=== PATIENT | female | born 1980 | race Caucasian/White ===

== ENCOUNTER 2016-09-07 15:13 | Emergency (ER) | payer OTHER ==
[2016-09-07] MEDS ORDERED: NS 0.9% 1000 ML* 2,000 ML IV ONE (16:27)
[2016-09-07] MEDS ORDERED: Ondansetron INJ* 2 MG/ML VIAL IV ONE (16:27)
[2016-09-07 16:37] LABS: Hematocrit 35 % (35-47); Hemoglobin 12.1 g/dl (12.0-16.0); Mean Corpuscular HGB Conc 35 g/dl (31-36); Mean Corpuscular Hemoglobin 31 pg (27-31); Mean Corpuscular Volume 88 fL (80-97); Mean Platelet Volume 8 um3 (7.4-10.4); Red Blood Count 3.93 10^6/ul (4.0-5.4); Red Cell Distribution Width 13 % (10.5-15); White Blood Count 9.5 10^3/ul (3.5-10.8)
[2016-09-07 16:46] LABS: Albumin 3.3 g/dL (3.2-5.2); Calcium 8.6 mg/dL (8.6-10.3); EGFR African American 155.2 (>60); EGFR Non-African American 120.7 (>60); Globulin 3.1 g/dL (2-4); Potassium 3.5 mmol/L (3.5-5.0); Total Bilirubin 0.6 mg/dL (0.2-1.0); Total Protein 6.4 g/dL (6.4-8.9)
[2016-09-07 18:56] VITALS: BP 127/59
[2016-09-07 19:02] LABS: Urine Bilirubin Negative (Negative); Urine Glucose Negative (Negative); Urine Nitrite Negative (Negative)
--- NOTE | 2016-09-12 12:12 | ED ---
Chris Summers Billy, scribed for Dwayne Dickerson MD on 09/07/16 at 1637 . GI/ HPI - HPI Summary HPI Summary: Patient is a 36 year-old female coming to [facility] for evaluation of N/V/D for the last 2 days. Patient is 30 weeks . A0, LMP 02/13/17, due date . Denies any abdominal pain or vaginal discharge/bleeding. Patient was seen by Dr. Arango ([facility] in [place]) who recommended that the patient come to the ED for further treatment and evaluation. - History of Current Complaint Chief Complaint: EDNauseaVomitDiarrh Time Seen by Provider: 09/07/16 16:19 Stated Complaint: POSS DEHYDRATION-SENT BY OB Hx Obtained From: Patient Onset/Duration: Started Days Ago Timing: Intermittent Severity: Moderate Current Severity: Moderate Pain Intensity: 0 Associated Signs and Symptoms: Positive: Nausea, Vomiting, Diarrhea Aggravating Factor(s): Nothing Alleviating Factor(s): Nothing - Allergy/Home Medications Allergies/Adverse Reactions: Allergies Allergy/AdvReac Type Severity Reaction Status Date / Time Amoxicillin Allergy Hives Verified 09/07/16 16:17 Bee Venom Allergy Hives/Diff. Verified 09/07/16 16:17 Breathing/I tching PMH/Surg Hx/FS Hx/Imm Hx Endocrine/Hematology History: Denies: Hx Diabetes Cardiovascular History: Denies: Hx Myocardial Infarction Infectious Disease History: Yes Infectious Disease History: Denies: Traveled Outside the [place] in Last 30 Days - Family History Known Family History: Positive: Hypertension, Other - Diverticulitis - Social History Alcohol Use: None Substance Use Type: Reports: None Smoking Status (MU): Never Smoked Tobacco Review of Systems Negative: Fever Positive: Vomiting, Diarrhea, Nausea. Negative: Abdominal Pain All Other Systems Reviewed And Are Negative: Yes Physical Exam - Summary Physical Exam Summary: VITAL SIGNS: Reviewed. GENERAL: Patient is an obese female who is lying comfortable in the stretcher. Patient is not in any acute respiratory distress. HEAD AND FACE: Normocephalic and atraumatic. EYES: PERRLA, EOMI x 2, No injected conjunctiva. EARS: Hearing grossly intact. Ear canals and tympanic membranes are WNL. MOUTH: Oropharynx within normal limits. NECK: Supple, trachea is midline, no adenopathy, no JVD. CHEST: Symmetric, no tenderness at palpation LUNGS: Clear to auscultation bilaterally. No wheezing or crackles. CVS: RRR,, S1 and S2 present, no murmurs or gallops appreciated. ABDOMEN: Soft, obese female, non-tender. Positive bowel sounds. No rebound no guarding, and no masses palpated. No abdominal bruit or pulsations. EXTREMITIES: FROM in all major joints, no edema, no cyanosis or clubbing. NEURO: Alert and oriented x 3. No acute neurological deficits. Speech is normal. SKIN: Dry and warm Triage Information Reviewed: Yes Vital Signs On Initial Exam: Initial Vitals Temp Pulse Resp BP Pulse Ox 97.1 F 76 16 139/68 98 09/07/16 15:38 09/07/16 15:38 09/07/16 15:38 09/07/16 15:38 09/07/16 15:38 Vital Signs Reviewed: Yes - Kady Coma Scale Coma Scale Total: 15 Diagnostics - Vital Signs Vital Signs Temp Pulse Resp BP Pulse Ox 09/07/16 16:19 83 138/88 97 09/07/16 16:16 83 98 09/07/16 16:12 97.5 F 87 18 139/68 97 09/07/16 15:38 97.1 F 76 16 139/68 98 - Laboratory Lab Results: Lab Results 09/07/16 09/07/16 09/07/16 Range/Units 16:15 16:15 16:15 WBC 9.5 (3.5-10.8) 10^3/ul RBC 3.93 L (4.0-5.4) 10^6/ul Hgb 12.1 (12.0-16.0) g/dl Hct 35 (35-47) % MCV 88 (80-97) fL MCH 31 (27-31) pg MCHC 35 (31-36) g/dl RDW 13 (10.5-15) % Plt Count 158 (150-450) 10^3/ul MPV 8 (7.4-10.4) um3 Neut % (Auto) 79.0 (38-83) % Lymph % (Auto) 13.9 L (25-47) % [place] % (Auto) 6.3 (1-9) % Eos % (Auto) 0.3 (0-6) % Baso % (Auto) 0.5 (0-2) % Absolute Neuts (auto) 7.5 (1.5-7.7) 10^3/ul Absolute Lymphs (auto) 1.3 (1.0-4.8) 10^3/ul Absolute Monos (auto) 0.6 (0-0.8) 10^3/ul Absolute Eos (auto) 0 (0-0.6) 10^3/ul Absolute Basos (auto) 0 (0-0.2) 10^3/ul Absolute Nucleated RBC 0.01 10^3/ul Nucleated RBC % 0.1 Sodium 135 (133-145) mmol/L Potassium 3.5 (3.5-5.0) mmol/L Chloride 106 (101-111) mmol/L Carbon Dioxide 20 L (22-32) mmol/L Anion Gap 9 (2-11) mmol/L BUN 8 (6-24) mg/dL Creatinine 0.57 (0.51-0.95) mg/dL Est GFR ( Amer) 155.2 (>60) Est GFR (Non-Af Amer) 120.7 (>60) BUN/Creatinine Ratio 14.0 (8-20) Glucose 80 (70-100) mg/dL Lactic Acid 0.5 (0.5-2.0) mmol/L Calcium 8.6 (8.6-10.3) mg/dL Total Bilirubin 0.60 (0.2-1.0) mg/dL AST 26 (13-39) U/L ALT 19 (7-52) U/L Alkaline Phosphatase 72 (34-104) U/L Total Protein 6.4 (6.4-8.9) g/dL Albumin 3.3 (3.2-5.2) g/dL Globulin 3.1 (2-4) g/dL Albumin/Globulin Ratio 1.1 (1-3) Result Diagrams: 09/07/16 16:15 09/07/16 16:15 Lab Statement: Any lab studies that have been ordered have been reviewed, and results considered in the medical decision making process. Re-Evaluation - Re-Evaluation First Eval Re-Evaluation Time: 18:45 Change: Improved GIGU Course/Dx - Course Assessment/Plan: Patient is a 36 year-old female coming to [facility] for evaluation of N/V/D for the last 2 days. Patient is 30 weeks . A0, LMP 02/13/17 , due date 11/13/16. Denies any abdominal pain or vaginal discharge/bleeding. Patient was seen by Dr. Arango ([facility] in [place]) who recommended that the patient come to the ED for further treatment and evaluation. Test results WNL. The patient was given IV fluids, Zofran for N/V, and her symptoms resolved. I did not do a pelvic exam or US since the patient has no abdominal cramping and denies any vaginal bleeding or discharge. heart rate is 136. The patient is tolerating PO without nausea or vomiting. Therefore, she will be discharged home to follow up with [facility]. She was recommended to return to the ED with any new vaginal bleeding or discharge, or abdominal cramping. She understands and agrees. - Diagnoses Differential Diagnoses - Female: Gastritis, Gastroenteritis (Viral), Gastroenteritis (Bacterial), Gerd Provider Diagnoses: Nausea vomiting and diarrhea Discharge - Discharge Plan Condition: Stable Disposition: HOME Patient Education Materials: Nausea and Vomiting in (ED), Acute Diarrhea (ED) Referrals: Khari MCCRACKEN,Froy Oconnor [Primary Care Provider] - Additional Instructions: FOLLOW UP WITH YOUR [facility]. The documentation as recorded by the Chris kim Billy accurately reflects the service I personally performed and the decisions made by me, Dwayne Dickerson MD.
== END 2016-09-07 18:56 | disposition home or self-care (01) ==
LOC: ED 15:13
DX: R11.2 Nausea with vomiting, unspecified (principal); R19.7 Diarrhea, unspecified
CPT/HCPCS: 36415; 80053; 81003; 83605; 85025; 96374; 99284; J2405

== ENCOUNTER 2016-09-12 07:03 | Emergency (ER) | payer BC, OTHER ==
[2016-09-12 07:30] VITALS: BP 127/58
--- NOTE | 2016-09-12 07:33 | UC ---
Throat Pain/Nasal Phong HPI - HPI Summary HPI Summary: 5 DAYS OF COUGH, ST AND EAR PAIN. NO FEVER, N/V/D. 31 WEEKS . - History of Current Complaint Chief Complaint: UCGeneralIllness Stated Complaint: SORE THROAT EAR PAIN Time Seen by Provider: 09/12/16 07:19 Hx Obtained From: Patient Onset/Duration: Gradual Onset, Lasting Days, Still Present Pain Intensity: 3 Pain Scale Used: 0-10 Numeric Cough: Nonproductive Associated Signs & Symptoms: Positive: Negative - Allergies/Home Medications Allergies/Adverse Reactions: Allergies Allergy/AdvReac Type Severity Reaction Status Date / Time Amoxicillin Allergy Hives Verified 09/12/16 07:16 Bee Venom Allergy Hives/Diff. Verified 09/12/16 07:16 Breathing/I tching Home Medications: Home Medications Vitamin [Calna] 1 tab BEDTIME 09/12/16 [History Confirmed 09/12/16] PMH/Surg Hx/FS Hx/Imm Hx Previously Healthy: Yes - Surgical History Surgical History: Yes Surgery Procedure, Year, and Place: Tonsils - Family History Known Family History: Positive: Hypertension - Social History Alcohol Use: None Substance Use Type: None Smoking Status (MU): Never Smoked Tobacco - Immunization History Most Recent Influenza Vaccination: 2016 Most Recent Tetanus Shot: UTD Review of Systems Constitutional: Negative ENT: Sore Throat, Ear Ache Respiratory: Cough Cardiovascular: Negative Gastrointestinal: Abdominal Pain All Other Systems Reviewed And Are Negative: Yes Physical Exam Triage Information Reviewed: Yes Appearance: Well-Appearing, No Pain Distress, Well-Nourished Vital Signs: Initial Vital Signs Temp 97.7 F 09/12/16 07:17 Pulse 82 09/12/16 07:17 Resp 16 09/12/16 07:17 BP 127/58 09/12/16 07:17 Pulse Ox 98 09/12/16 07:17 Vital Signs Reviewed: Yes Eyes: Positive: Conjunctiva Clear ENT: Positive: Hearing grossly normal, Pharynx normal, TMs normal, Other: - NO TONSILS Neck: Positive: Supple, Nontender, No Lymphadenopathy Respiratory Exam: Normal Cardiovascular Exam: Normal Abdomen Description: Positive: Soft Musculoskeletal: Positive: No Edema Neurological: Positive: Alert Psychological: Positive: Age Appropriate Behavior Skin: Negative: rashes Throat Pain/Nasal Course/Dx - Differential Dx/Diagnosis Provider Diagnoses: ACUTE URI Discharge - Discharge Plan Condition: Stable Disposition: HOME Patient Education Materials: Upper Respiratory Infection (ED) Referrals: Mendoza Alonzo DO [Primary Care Provider] - If Needed Additional Instructions: ACUTE UPPER RESPIRATORY INFECTION The common cold is a benign self-limited syndrome representing a group of diseases caused by members of several families of viruses. It is the most frequent acute illness in the [place] and throughout the industrialized world. The term "common cold" refers to a mild upper respiratory viral infection involving, to variable degrees, nasal congestion and discharge ( rhinorrhea), sneezing, sore throat, cough, low-grade fever, headache, and malaise. Symptomatic therapy remains the mainstay of common cold treatment. In the absence of convincing evidence of a secondary bacterial infection, antibiotics are not effective in the treatment of the common cold and should not be prescribed. Be advised that the usual course and duration of illness is up to one and a half weeks for patients with a cold, but can last slightly longer; symptoms usually persist longer in smokers AND [place] .
== END 2016-09-12 07:45 | disposition home or self-care (01) ==
LOC: UCCORT 07:03
DX: J06.9 Acute upper respiratory infection, unspecified (principal); Z88.1 Allergy status to other antibiotic agents; Z3A.31 31 weeks gestation of pregnancy
CPT/HCPCS: 99211; G0463

== ENCOUNTER 2016-11-19 19:03 | Inpatient (IN) | payer BC ==
[2016-11-19] MEDS ORDERED: CEFAZOLIN 2 GM IVPB ONE (20:50)
[2016-11-19] MEDS ORDERED: Dinoprostone* 10 MG VAG.SUPP VAGINAL ONE (21:00)
[2016-11-19] MEDS ORDERED: ceFAZolin 1 GM ADVAN(*) 1 GM in NS 0.9% 50 ML* 50 ML IVPB SCH (21:00)
[2016-11-20] MEDS ORDERED: Misoprostol TAB* 100 MCG ONE (09:03)
[2016-11-20] MEDS ORDERED: Misoprostol TAB* 100 MCG VAGINAL PRN (09:04)
[2016-11-20] MEDS: Docusate CAP* 100 MG PO PRN (10:38)
[2016-11-20 15:18] LABS: Hematocrit 40 % (35-47); Hemoglobin 13.6 g/dl (12.0-16.0); Mean Corpuscular HGB Conc 34 g/dl (31-36); Mean Corpuscular Hemoglobin 31 pg (27-31); Mean Corpuscular Volume 90 fL (80-97); Mean Platelet Volume 9 um3 (7.4-10.4); Red Blood Count 4.42 10^6/ul (4.0-5.4); Red Cell Distribution Width 13 % (10.5-15); White Blood Count 10.6 10^3/ul (3.5-10.8)
[2016-11-20] MEDS ORDERED: ceFOXitin 2 GM IVPREMIX* 2 GM/50 ML BAG ONE (18:01)
[2016-11-20] MEDS ORDERED: Sodium Citrate/Citric Acid* 15 ML UDC ONE (18:01)
[2016-11-20] MEDS ORDERED: ceFOXitin 2 GM IVPREMIX* 2 GM/50 ML BAG IVPB ONE (18:09)
[2016-11-20] MEDS ORDERED: Ondansetron INJ* 2 MG/ML VIAL ONE (18:44)
[2016-11-20] MEDS ORDERED: Morphine PF AMP (0.5MG/ML)* 5 MG/10 ML AMP ONE (18:44)
[2016-11-20] MEDS ORDERED: Dexamethasone IV* 4 MG/ML 1 ML (4 MG) ONE (18:44)
[2016-11-20] MEDS ORDERED: OXYTOCIN* 10 UNITS/ML 1 ML VIAL ONE (18:44)
[2016-11-20] MEDS ORDERED: oxyCODONE TAB* 5 MG TAB PO PRN ×2 (18:47→20:00)
[2016-11-20] MEDS ORDERED: Nalbuphine* 20 MG/ML 1 ML VIAL IV PRN ×2 (18:47→20:00)
[2016-11-20] MEDS ORDERED: Acetaminophen IV 1GM/100ML * 100 ML IVPB ONE (18:47)
[2016-11-20] MEDS ORDERED: fentaNYL* 50 MCG/ML 2 ML VIAL (100 MCG VIAL) IV PRN (18:47)
[2016-11-20] MEDS ORDERED: PROCHLORPERAZINE INJ 5 MG/ML 2 ML VIAL IV PRN ×2 (18:47→20:00)
[2016-11-20] MEDS ORDERED: Ketorolac INJ* 30 MG/ML 1 ML VIAL IV SCH (19:45)
[2016-11-20] MEDS ORDERED: Naloxone* 0.4 MG/ML 1 ML VIAL IV PRN (20:00)
[2016-11-20] MEDS ORDERED: Ondansetron INJ* 2 MG/ML VIAL IV PRN (20:00)
[2016-11-20] MEDS ORDERED: Scopolomine PATCH Remove* 1 NOTE MISC PATCH OFF PRN (20:00)
[2016-11-20] MEDS ORDERED: Scopolamine 1.5 mg* PATCH TRANSDERM PRN (20:00)
[2016-11-20] MEDS ORDERED: Varicella Virus Vaccine Live* 0.5 ML VIAL SUBCUT ONE (20:41)
[2016-11-20] MEDS ORDERED: Glycerin ADULT SUPP PR PRN (20:41)
[2016-11-20] MEDS ORDERED: Witch Hazel PAD* JAR TOPICAL PRN (20:41)
[2016-11-20] MEDS ORDERED: Ketorolac INJ* 30 MG/ML 1 ML VIAL ONE (20:56)
[2016-11-20] MEDS ORDERED: Acetaminophen IV 1GM/100ML * 100 ML ONE (20:57)
[2016-11-20] MEDS: Ketorolac INJ* 30 MG/ML 1 ML VIAL IV SCH (21:21)
[2016-11-20] MEDS: Acetaminophen TAB* 325 MG PO SCH (21:21)
[2016-11-20] MEDS: Simethicone CHEW TAB* 80 MG PO SCH (21:55)
[2016-11-21] MEDS: Ketorolac INJ* 30 MG/ML 1 ML VIAL IV SCH ×3 (01:56→14:23)
[2016-11-21] MEDS: Acetaminophen TAB* 325 MG PO SCH ×2 (04:08→12:36)
[2016-11-21] MEDS ORDERED: Lidocaine 1% MPF* 2 ML VIAL ONE (06:59)
[2016-11-21 07:13] LABS: Hematocrit 35 % (35-47); Hemoglobin 11.6 g/dl (12.0-16.0); Mean Corpuscular HGB Conc 34 g/dl (31-36); Mean Corpuscular Hemoglobin 30 pg (27-31); Mean Corpuscular Volume 90 fL (80-97); Mean Platelet Volume 8 um3 (7.4-10.4); Red Blood Count 3.82 10^6/ul (4.0-5.4); Red Cell Distribution Width 13 % (10.5-15); White Blood Count 16.4 10^3/ul (3.5-10.8)
[2016-11-21] MEDS: Docusate CAP* 100 MG PO PRN ×2 (08:41→20:14)
[2016-11-21] MEDS: Simethicone CHEW TAB* 80 MG PO SCH ×4 (08:41→20:14)
[2016-11-21] MEDS ORDERED: Ferrous Gluconate TAB* 324 MG TAB PO SCH (09:00)
[2016-11-21] MEDS: Ibuprofen TAB* 600 MG PO SCH (20:13)
[2016-11-21] MEDS: oxyCODONE/Acetamin 5/325 MG* TAB PO PRN (23:39)
[2016-11-22] MEDS: oxyCODONE/Acetamin 5/325 MG* TAB PO PRN ×4 (03:13→18:01)
[2016-11-22] MEDS: Ibuprofen TAB* 600 MG PO SCH ×4 (03:14→21:25)
[2016-11-22] MEDS: Simethicone CHEW TAB* 80 MG PO SCH ×4 (09:27→21:24)
[2016-11-22] MEDS: Docusate CAP* 100 MG PO PRN ×2 (09:28→21:25)
[2016-11-22] MEDS ORDERED: Varicella Virus Vaccine Live* 0.5 ML VIAL SUBCUT ONE (13:00)
[2016-11-23] MEDS: oxyCODONE/Acetamin 5/325 MG* TAB PO PRN ×3 (00:03→10:18)
[2016-11-23] MEDS: Ibuprofen TAB* 600 MG PO SCH ×2 (03:42→10:18)
[2016-11-23 08:10] VITALS: BP 119/65
[2016-11-23] MEDS: Docusate CAP* 100 MG PO PRN (10:18)
[2016-11-23] MEDS: Simethicone CHEW TAB* 80 MG PO SCH (10:18)
--- NOTE | 2016-11-24 06:40 | OP ---
DATE OF OPERATION: 11/20/16 - ROOM #MCHOB-115 DATE OF : 82 SURGEON: Vasu Claros MD PIZZA MAKER: Dr. Harrell. ANESTHESIOLOGIST: Ewelina Wong MD ANESTHESIA: Spinal. PRE-OP DIAGNOSES: 41 weeks gestation with failed induction of labor and morbid obesity. POST-OP DIAGNOSES: 41 weeks gestation with failed induction of labor and morbid obesity. OPERATIVE PROCEDURE: Primary low-transverse section with vacuum assist. ESTIMATED BLOOD LOSS: 800 cc. URINE OUTPUT: 250 cc. IV FLUIDS: 2700 cc lactated Ringer's. MATERIALS TO LAB: Cord blood. INDICATIONS: This patient was a 36-year-old 1, para 0 who had an IVF , admitted the night before for induction of labor at 40 plus 6 weeks gestation. The patient received Cervidil for cervical ripening and then two additional doses of misoprostol. At that time, she still had no cervical change from long and closed and the head was still high in the pelvis. Considering she has been about 20 hours into the induction with no response, we discussed our options. The patient desired to discontinue attempts at induction and wanted to proceed with a primary section at that time. She was extensively counseled and consent was signed. FINDINGS: Normal-appearing uterus, fallopian tubes, and ovaries. Delivery is productive of a female infant weighing 8 pounds 9 ounces with Apgars of 9 and 9. Time of delivery was 1954. COMPLICATIONS: None. DESCRIPTION OF PROCEDURE: The risks, benefits, and alternatives were described to the patient and informed consent was obtained. The patient was taken to the operating room with IV running where spinal anesthesia was induced and found to be adequate. The patient was prepped and draped in the normal sterile fashion in the dorsal supine position with leftward tilt. A Pfannenstiel skin incision was made with a scalpel and this was carried down to the underlying fascia sharply. The fascia was then scored in the midline with the scalpel. The incision was extended using Allen scissors. The rectus muscles were dissected off the rectus fascia using blunt and sharp dissection. The rectus muscles were in the midline bluntly. The peritoneum was also entered bluntly. A bladder blade was placed. A bladder flap was created sharply using Metzenbaum scissors. A low transverse uterine incision was made with the scalpel. This was carried down to the amniotic cavity which was productive of clear fluid. The incision was extended with blunt traction. The head was elevated to the level of the incision without difficulty and delivered through the incision. With fundal pressure, the shoulders and body delivered without difficulty. The infant had an excellent tone and cried immediately on delivery. The cord was doubly clamped and cut. The infant was then handed to the awaiting website project manager. Cord blood was collected. The placenta then delivered with manual extraction. The uterus was then exteriorized and cleared of all clots and debris. Uterine incision was reapproximated using 0 Polysorb in a running-locked fashion. A second layer of imbricating sutures of 0 Polysorb was also placed with good hemostasis. The posterior cul-de-sac was irrigated with saline. The uterus was then returned to the abdomen, and the incision was reinspected and noted to be hemostatic. The peritoneum was closed with 2-0 chromic in a running fashion. The fascia was closed with 0 Polysorb in a running fashion. Subcutaneous tissues were reapproximated using 2-0 chromic and interrupted sutures. The skin was then closed with 4-0 Monocryl in a subcuticular stitch. Mastisol and Steri-Strips were placed over the incision which was then covered with a sterile bandage. The patient tolerated the procedure well. Sponge, lap, and needle counts were correct x2. [id number]/[facility] #: [id number] [facility]
== END 2016-11-23 11:40 | disposition home or self-care (01) | DRG 540 ==
LOC: MCHOBOUT 19:03 → MCHOB 21:15
PROVIDERS: ADMIT Obstetrics & Gynecology; ATTEND Obstetrics & Gynecology
PROC: 3E033VJ Introduction of Other Hormone into Peripheral Vein, Percutaneous Approach (ICD-10-PCS; 2016-11-20)
PROC: 10D00Z1 Extraction of Products of Conception, Low, Open Approach (ICD-10-PCS; principal; 2016-11-20 19:00)
DX: O61.9 Failed induction of labor, unspecified (principal); Z68.42 Body mass index [BMI] 45.0-49.9, adult; O48.0 Post-term pregnancy; O99.824 Streptococcus B carrier state complicating childbirth; O99.214 Obesity complicating childbirth; E66.01 Morbid (severe) obesity due to excess calories; O09.513 Supervision of elderly primigravida, third trimester; Z3A.41 41 weeks gestation of pregnancy; Z37.0 Single live birth
CPT/HCPCS: 36415; 59200; 76815; 85025; 86850; 86900; 86901; A9270-GY; J0694; J1100; J1885; J2300; J2405; J2590; S0191

== ENCOUNTER 2017-02-04 07:02 | Emergency (ER) | payer BC ==
[2017-02-04 07:09] VITALS: BP 123/62
--- NOTE | 2017-02-04 07:20 | UC ---
Complaint Female HPI - HPI Summary HPI Summary: urgency for the past 1-2 days. No fevers or vomiting. no back or flank pain. there is lower pelvic pain. this is similar to prior uti. No vaginal discharge or pain. - History Of Current Complaint Chief Complaint: UCGU Stated Complaint: URINARY Time Seen by Provider: 02/04/17 07:12 Hx Obtained From: Patient Hx Last Menstrual Period: unknown, gave 2 months ago ?: No Onset/Duration: Gradual Onset, Lasting Days Timing: Lasting Days Severity Initially: Mild Severity Currently: Moderate Character: Dull, Cramping Aggravating Factor(s): Urination Alleviating Factor(s): Nothing Associated Signs And Symptoms: Positive: Negative - Allergies/Home Medications Allergies/Adverse Reactions: Allergies Allergy/AdvReac Type Severity Reaction Status Date / Time Amoxicillin Allergy Hives Verified 02/04/17 07:09 Bee Venom Allergy Hives/Diff. Verified 02/04/17 07:09 Breathing/I tching Home Medications: Home Medications Oral Contraceptive 1 tab PO DAILY 02/04/17 [History Confirmed 02/04/17] PMH/Surg Hx/FS Hx/Imm Hx Previously Healthy: No - prior uti. - Surgical History Surgical History: Yes Surgery Procedure, Year, and Place: Tonsils. 11/20/16 - Family History Known Family History: Positive: Hypertension - Social History Alcohol Use: None Substance Use Type: None Smoking Status (MU): Never Smoked Tobacco - Immunization History Most Recent Influenza Vaccination: 2015 Most Recent Tetanus Shot: UTD Most Recent Pneumonia Vaccination: none Review of Systems Constitutional: Negative Genitourinary: Urgency All Other Systems Reviewed And Are Negative: Yes Physical Exam Triage Information Reviewed: Yes Appearance: Well-Appearing, No Pain Distress, Well-Nourished Vital Signs: Initial Vital Signs Temp 97.9 F 02/04/17 07:06 Pulse 72 02/04/17 07:06 Resp 16 02/04/17 07:06 BP 123/62 02/04/17 07:06 Pulse Ox 100 02/04/17 07:06 Vital Signs Reviewed: Yes Eyes: Positive: Conjunctiva Clear. Negative: Conjunctiva Inflamed ENT: Positive: Pharynx normal Neck: Positive: Supple, Nontender, No Lymphadenopathy Respiratory: Positive: No respiratory distress, No accessory muscle use Cardiovascular: Positive: Brisk Capillary Refill Abdomen Description: Positive: Nontender. Negative: CVA Tenderness (R), CVA Tenderness (L) Musculoskeletal: Positive: No Edema Neurological: Positive: Alert, Muscle Tone Normal. Negative: Fatigued Psychological Exam: Normal Skin: Negative: rashes Complaint Female Dx - Differential Dx/Diagnosis Provider Diagnoses: uti Discharge - Discharge Plan Condition: Good Disposition: HOME Prescriptions: Fluconazole 100 MG TAB* [Diflucan 100 MG TAB*] 100 mg PO DAILY #3 tab Nitrofurantoin Monohyd Macro [Macrobid] 100 mg PO BID #20 cap Patient Education Materials: Urinary Tract Infection in Women (ED) Referrals: Mendoza Alonzo DO [Primary Care Provider] - If Needed
== END 2017-02-04 07:22 | disposition home or self-care (01) ==
LOC: UCCORT 07:02
DX: N39.0 Urinary tract infection, site not specified (principal); Z88.1 Allergy status to other antibiotic agents; Z91.030 Bee allergy status
CPT/HCPCS: 81003; 87077; 87086; 99212; G0463

== ENCOUNTER 2017-04-07 07:44 | Emergency (ER) | payer BC ==
--- NOTE | 2017-04-07 07:51 | UC ---
Eye Complaint HPI - HPI Summary HPI Summary: Reviewed RN notes. + sick contact at home with "pink eye." Yesterday both eyes itchy, but R>L. Today tried to put contact lens in eye -> eye burned and itched. + teary drainage. Denies cough / cold. No fever /chills. Vision ok. 07:50 not yet in room. Pt seen at 08:10 - History of Current Complaint Stated Complaint: EYE COMPLAINT Time Seen by Provider: 04/07/17 07:50 Hx Obtained From: Patient Hx Last Menstrual Period: unknown, gave 2 months ago - Allergies/Home Medications Allergies/Adverse Reactions: Allergies Allergy/AdvReac Type Severity Reaction Status Date / Time Amoxicillin Allergy Hives Verified 04/07/17 07:57 Bee Venom Allergy Hives/Diff. Verified 04/07/17 07:57 Breathing/I tching Home Medications: Home Medications Docusate CAP* [Colace Cap*] 100 mg PO DAILY 04/07/17 [History Confirmed 04/07/17 ] PMH/Surg Hx/FS Hx/Imm Hx Previously Healthy: Yes - Surgical History Surgical History: Yes Surgery Procedure, Year, and Place: Tonsils. 11/20/16 - Family History Known Family History: Positive: Hypertension - Social History Alcohol Use: None Substance Use Type: None Smoking Status (MU): Never Smoked Tobacco - Immunization History Most Recent Influenza Vaccination: 2016 Most Recent Tetanus Shot: UTD Most Recent Pneumonia Vaccination: none Review of Systems Constitutional: Negative Skin: Negative Eyes: Other - see hpi ENT: Negative Respiratory: Negative Cardiovascular: Negative Gastrointestinal: Negative Genitourinary: Negative Motor: Negative Neurovascular: Negative Musculoskeletal: Negative Neurological: Negative Psychological: Negative Is Patient Immunocompromised?: No All Other Systems Reviewed And Are Negative: Yes Physical Exam Triage Information Reviewed: Yes Appearance: Well-Nourished Vital Signs Reviewed: Yes Eye Exam: Other Eyes: Positive: Conjunctiva Inflamed - - R eye. PERRLA EOMI Fluorescein - negative unusual uptake. No abrasion, no ulcer. Lids everted without fb noted. ENT Exam: Normal Neck exam: Normal Neck: Positive: Supple Respiratory Exam: Normal - no tachypnea / no dyspnea Cardiovascular Exam: Normal - normal rate and good skin color, nondiaphoretic Abdominal Exam: Normal - no c/o's, sitting up Musculoskeletal Exam: Normal - moves all 4 ext's Neurological Exam: Normal Psychological Exam: Normal - conversing easily and appropriately Skin Exam: Normal Eye Complaint Course/Dx - Course Course Of Treatment: no new problems in ccc. reviewed eye instructions. questions as posed answered to the best of my ability. - Differential Dx/Diagnosis Provider Diagnoses: conjunctivitis R eye. Discharge - Discharge Plan Condition: Stable Disposition: HOME Prescriptions: Ciprofloxacin 0.3% OPTH.CHANDNI* [Cipro 0.3% Opth*] 2 drop RIGHT EYE Q6H #1 btl Patient Education Materials: Antihistamine (By mouth), Conjunctivitis (ED) Forms: *Work Release Referrals: Mendoza Alonzo DO [Medical Doctor] - Additional Instructions: Follow up primary care physician per routine. Seek medical attention sooner - let your primary care physician know, return here, or see your eye doctor - for worse or new problems.
[2017-04-07] MEDS ORDERED: Fluorescein Sodium TOPICAL* 1 MG TEST ONE (08:07)
[2017-04-07] MEDS ORDERED: Tetracaine 0.5% OPTH.SOL 4 ML* 1 DROP BTL ONE ×2 (08:07→08:16)
[2017-04-07] MEDS ORDERED: BSS OPTH.SOL* BTL ONE (08:07)
[2017-04-07] MEDS ORDERED: Fluorescein Sodium TOPICAL* 1 MG TEST OPHTHALMIC ONE (08:17)
[2017-04-07 08:19] VITALS: BP 131/77
[2017-04-07] MEDS ORDERED: Artificial Tears* 15 ML BTL RIGHT EYE ONE (08:38)
== END 2017-04-07 08:44 | disposition home or self-care (01) ==
LOC: UCCORT 07:44
DX: H10.9 Unspecified conjunctivitis (principal); Z88.3 Allergy status to other anti-infective agents; Z91.030 Bee allergy status
CPT/HCPCS: 99212; A9270-GY; G0463

== ENCOUNTER 2017-12-19 14:50 | Emergency (ER) | payer BC ==
[2017-12-19 15:07] VITALS: BP 130/76
--- NOTE | 2017-12-19 15:35 | UC ---
Complaint Female HPI - HPI Summary HPI Summary: The patient is a 37-year-old female with increased frequency of urination and urgency of urination 2 weeks. For the past day or 2 she's had terminal dysuria. Denies any fever or chills. She is concerned she may be . She had 2 positive tests at home. She has had no fever or chills. She has had no nausea vomiting or diarrhea. Eyes any back pain or abdominal pain. She has a history of frequent UTIs. - History Of Current Complaint Chief Complaint: UCGU Stated Complaint: URINARY Time Seen by Provider: 12/19/17 15:04 Hx Last Menstrual Period: UNKNOWN Onset/Duration: Gradual Onset, Lasting Days Timing: Intermittent, Lasting Seconds Severity Initially: Severe Severity Currently: None Pain Intensity: 7 - post void Pain Scale Used: 0-10 Numeric Character: Burning Aggravating Factor(s): Urination Associated Signs And Symptoms: Negative: Fever, Back Pain, Vaginal Bleeding/ Discharge, Vaginal Discharge, Nausea, Vomiting(# Of Episodes =), Genital Swelling, Genital Blisters, Retained Foregin Body (Specify) Related Hx: Similar Episode/Dx as: - UTI - Allergies/Home Medications Allergies/Adverse Reactions: Allergies Allergy/AdvReac Type Severity Reaction Status Date / Time amoxicillin Allergy Hives Verified 12/19/17 15:02 bee venom protein (honey bee) Allergy Hives/Diff. Verified 12/19/17 15:02 Breathing/I tching Home Medications: Home Medications Metformin HCl 1,500 mg PO DAILY 12/19/17 [History Confirmed 12/19/17] PMH/Surg Hx/FS Hx/Imm Hx Previously Healthy: Yes Respiratory History: Asthma GI/ History: Other Other GI/ History: PCOS - Surgical History Surgical History: Yes Surgery Procedure, Year, and Place: Tonsils. 11/20/16. RECONSTRUCTIVE FACIAL SURGERY IN HER 20S - Family History Known Family History: Positive: Hypertension - Social History Alcohol Use: None Substance Use Type: None Smoking Status (MU): Never Smoked Tobacco Household Exposure Type: Cigarettes - Immunization History Most Recent Influenza Vaccination: 2015 Most Recent Tetanus Shot: UTD Most Recent Pneumonia Vaccination: none Review of Systems Constitutional: Negative Skin: Negative Eyes: Negative ENT: Negative Respiratory: Negative Cardiovascular: Negative Gastrointestinal: Negative Genitourinary: Dysuria, Hematuria, Frequency, Urgency Motor: Negative Neurovascular: Negative Musculoskeletal: Negative Neurological: Negative Psychological: Negative Is Patient Immunocompromised?: No All Other Systems Reviewed And Are Negative: Yes Physical Exam Triage Information Reviewed: Yes Appearance: No Pain Distress, Well-Nourished Vital Signs: Initial Vital Signs Temp 98.3 F 12/19/17 14:56 Pulse 83 12/19/17 14:56 Resp 19 12/19/17 14:56 BP 130/76 12/19/17 14:56 Pulse Ox 99 12/19/17 14:56 Vital Signs Reviewed: Yes Eyes: Positive: Conjunctiva Clear ENT: Positive: Hearing grossly normal. Negative: Nasal congestion, Nasal drainage, Trismus, Muffled voice, Dental tenderness Neck: Positive: Supple, Nontender Respiratory: Positive: Lungs clear, Normal breath sounds, No respiratory distress, No accessory muscle use Cardiovascular: Positive: RRR, No Murmur Abdomen Description: Positive: Nontender, No Organomegaly, Other: - unable to hear FHTs with doppler. Negative: Distended, Guarding, Hernia @ Musculoskeletal: Positive: ROM Intact, No Edema Neurological: Positive: Alert Psychological Exam: Normal Skin Exam: Normal Diagnostics - Laboratory Diagnostic Studies Completed/Ordered: HCG +. ua +++RBCs ++protein+leuks Complaint Female Dx - Differential Dx/Diagnosis Provider Diagnoses: . dysuria-? UTI Discharge - Sign-Out/Discharge Documenting (check all that apply): Patient Departure All imaging exams completed and their final reports reviewed: No Studies - Discharge Plan Condition: Stable Disposition: HOME Prescriptions: Cephalexin CAP* [Keflex CAP*] 500 mg PO BID #14 cap Patient Education Materials: (ED), Dysuria (ED) Referrals: No Primary Care Phys,NOPCP [Primary Care Provider] - Additional Instructions: A urine culture is pending recheck for new symptoms or if not better in 2 days take a vit with folate See OB as planned - Billing Disposition and Condition Condition: STABLE Disposition: Home
== END 2017-12-19 15:47 | disposition home or self-care (01) ==
LOC: UCCORT 14:50
DX: O99.89 Other specified diseases and conditions complicating pregnancy, childbirth and the puerperium (principal); R30.0 Dysuria; R35.0 Frequency of micturition; R39.15 Urgency of urination; O99.519 Diseases of the respiratory system complicating pregnancy, unspecified trimester; J45.909 Unspecified asthma, uncomplicated; Z88.0 Allergy status to penicillin; Z91.030 Bee allergy status
CPT/HCPCS: 81003; 84702; 87077; 87086; 87186; 99212; G0463

== ENCOUNTER 2018-06-03 08:10 | Emergency (ER) | payer OTHER, BC ==
[2018-06-03] MEDS ORDERED: Ondansetron INJ* 2 MG/ML VIAL IV ONE (08:29)
[2018-06-03] MEDS ORDERED: NS 0.9% 1000 ML** 1,000 ML IV ONE ×2 (08:30→08:41)
--- NOTE | 2018-06-03 08:39 | ED ---
Abdominal Pain/Female - HPI Summary HPI Summary: A 38 y/o F who is 28-weeks presents to the ED with c/o ongoing n/v/d onset 12 hours ago. Associated sx: chills, abdominal pain secondary to the vomiting described as cramping, weakness. Denies: fever, cough, rhinorrhea, vaginal bleeding, bloody stool, dizziness. The baby is moving normally and the patient denies feeling contractions. She goes to [facility] in [place]. Her previous was overdue and she had a , but she had no other complications. She was seen yesterday by an OB and had an U/S and felt at baseline. Prior to yesterday, her last U/S was 4 weeks ago. The patient has been around sick people recently, including her 18-month old daughter who has been vomiting and other family members who had diarrhea. She takes a stool softener and pre-mora vitamin daily. - History of Current Complaint Chief Complaint: EDNauseaVomitLibertadarrrobin Stated Complaint: 28 WEEKS /VOMITING Time Seen by Provider: 06/03/18 08:27 Hx Obtained From: Patient, Family/Die Cast Operator - mother present Hx Last Menstrual Period: UNKNOWN Onset/Duration: Lasting Hours, Still Present Timing: Constant Severity Initially: Mild Severity Currently: Mild Pain Intensity: 0 Pain Scale Used: 0-10 Numeric Location: Diffuse Character: Cramping Associated Signs and Symptoms: Positive: Nausea, Vomiting, Diarrhea, Other: - pos: chills, abd pain, weakness. Negative: Fever, Cough, Dizzy, Blood in Stool , Vaginal Bleeding, Vaginal Discharge Allergies/Adverse Reactions: Allergies Allergy/AdvReac Type Severity Reaction Status Date / Time amoxicillin Allergy Hives Verified 06/03/18 08:21 bee venom protein (honey bee) Allergy Hives/Diff. Verified 06/03/18 08:21 Breathing/I tching Home Medications: Home Medications Docusate CAP* [Colace Cap*] 200 mg PO DAILY 06/03/18 [History Confirmed 06/03/18 ] PMH/Surg Hx/FS Hx/Imm Hx Previously Healthy: Yes Respiratory History: Reports: Hx Asthma Opthamlomology History: Denies: Hx Legally Blind EENT History: Denies: Hx Deafness - Surgical History Surgery Procedure, Year, and Place: Tonsils. 11/20/16. RECONSTRUCTIVE FACIAL SURGERY IN HER 20S Infectious Disease History: No Infectious Disease History: Denies: Traveled Outside the [place] in Last 30 Days - Family History Known Family History: Positive: Hypertension - Social History Occupation: Employed Full-time Lives: With Family Alcohol Use: None Hx Substance Use: No Substance Use Type: Reports: None Hx Tobacco Use: No Smoking Status (MU): Never Smoked Tobacco Review of Systems Positive: Chills. Negative: Fever Negative: Erythema Negative: Sore Throat, Nasal Discharge Negative: Chest Pain Negative: Shortness Of Breath, Cough Positive: Abdominal Pain, Vomiting, Diarrhea, Nausea, Other - neg: bloody stool Positive: other - pos: 28-weeks . Negative: dysuria, discharge - neg: vaginal bleeding, hematuria Negative: Myalgia, Edema Negative: Rash Neurological: Other - neg: dizziness Positive: Weakness All Other Systems Reviewed And Are Negative: Yes Physical Exam - Summary Physical Exam Summary: General: Well appearing, no distress Cardiovascular: Skin is well perfused Pulmonary: No respiratory distress, no tachypnea Abdomen: Non-distended Skin: Warm, pink, dry Psych: Normal affect Neuro: A&Ox3 Triage Information Reviewed: Yes Vital Signs On Initial Exam: Initial Vitals Temp Pulse Resp BP Pulse Ox 98.4 F 90 17 123/78 96 06/03/18 08:17 06/03/18 08:17 06/03/18 08:17 06/03/18 08:17 06/03/18 08:17 Vital Signs Reviewed: Yes Diagnostics - Vital Signs Vital Signs Temp Pulse Resp BP Pulse Ox 06/03/18 08:17 98.4 F 90 17 123/78 96 - Laboratory Result Diagrams: 06/03/18 08:43 06/03/18 08:43 Lab Statement: Any lab studies that have been ordered have been reviewed, and results considered in the medical decision making process. Re-Evaluation - Re-Evaluation 1 Re-Evaluation Time: 12:27 Change: Worse Comment: Pt feeling nauseated. Abdominal Pain Fem Course/Dx - Course Course Of Treatment: Patient is a 38 y/o F who is 28-weeks presenting with ongoing n/v/d onset 12 hours ago. Associated sx: chills, abdominal pain secondary to the vomiting described as cramping, weakness. Denies: fever, cough , rhinorrhea, vaginal bleeding, bloody stool, dizziness. The baby is moving normally and the patient denies feeling contractions. She goes to [facility] in [place]. Her previous was overdue and she had a , but she had no other complications. She was seen yesterday by an OB and had an U/S. She felt at baseline yesterday. Daily medications include a stool softener and pre- vitamin. Patient received IV fluids, Zofran in ED. Lab work is unremarkable except for elevated CRP. UA results show 1+ ketones and ascorbic acid present. Consulted with Dr. Arango, [facility], who states no additional monitoring is needed, recommends f/u in 2-3 days. Will discharge patient home. - Diagnoses Provider Diagnoses: Gastroenteritis - Provider Notifications Discussed Care Of Patient With: Alia Arango - [facility] Time Discussed With Above Provider: 12:55 Instructed by Provider To: Have Pt Call For Appt. - No additional monitoring needed; pt can f/u in office Discharge - Sign-Out/Discharge Documenting (check all that apply): Patient Departure - D/C Patient Received Moderate/Deep Sedation with Procedure: No - Discharge Plan Condition: Stable Disposition: HOME Prescriptions: Ondansetron ODT TAB* [Zofran 4 MG Odt TAB*] 8 mg PO Q6H PRN #12 tab.odt PRN Reason: Nausea/Vomiting Patient Education Materials: Ondansetron (By mouth), Gastroenteritis (ED) Referrals: [facility] [Provider Group] - 2 Days [facility] [Outside] - 2 Days Additional Instructions: Return to the emergency department for changing or worsening symptoms. Follow up with your OB in 2-3 days. Follow up with a primary care provider in 2- 3 days. - Attestation Statements Document Initiated by Scribe: Yes Documenting Scribe: Raman Lopez Provider For Whom Scribe is Documenting (Include Credential): Dr. Hunter Franco MD Scribe Attestation: Raman Summers, scribed for Dr. Hunter Franco MD on 06/03/18 at 1341. Status of Scribe Document: Ready
[2018-06-03 08:52] LABS: ABS Basophils 0 10^3/ul (0-0.2); ABS Eosinophils 0 10^3/ul (0-0.6); ABS Lymphocytes 0.4 10^3/ul (1.0-4.8); ABS Monocytes 0.3 10^3/ul (0-0.8); ABS Neutrophils 8.4 10^3/ul (1.5-7.7); ABS Nucleated RBC 0 10^3/ul; Eosinophil % 0 %; Hematocrit 37 % (35-47); Hemoglobin 12.7 g/dl (12.0-16.0); Lymphocyte % 4.5 %; Mean Corpuscular HGB Conc 35 g/dl (31-36); Mean Corpuscular Hemoglobin 31 pg (27-31); Mean Corpuscular Volume 89 fL (80-97); Mean Platelet Volume 7.5 fL (7.4-10.4); Nucleated Red Blood Cells % 0; Platelet Count 179 10^3/ul (150-450); Red Blood Count 4.15 10^6/ul (4.00-5.40); Red Cell Distribution Width 13 % (10.5-15); White Blood Count 9.1 10^3/ul (3.5-10.8)
[2018-06-03 09:17] LABS: Urine Appearance Cloudy; Urine Bilirubin Negative (Negative); Urine Blood Negative (Negative); Urine Color Yellow; Urine Glucose Negative (Negative); Urine Ketones 1+ (Negative); Urine Nitrite Negative (Negative); Urine Protein Negative (Negative); Urine Specific Gravity 1.026 (1.010-1.030); Urine Urobilinogen Negative (Negative)
[2018-06-03 09:19] LABS: Albumin 3.5 g/dL (3.2-5.2); Albumin/Globulin Ratio 1.1 (1-3); BUN/Creatinine Ratio 19.1 (8-20); C Reactive Protein 25.47 mg/L (<8.01); Calcium 8.7 mg/dL (8.6-10.3); EGFR African American 180.4 (>60); EGFR Non-African American 149.1 (>60); Globulin 3.3 g/dL (2-4); Potassium 3.8 mmol/L (3.5-5.0); Total Bilirubin 0.5 mg/dL (0.2-1.0); Total Protein 6.8 g/dL (6.4-8.9)
[2018-06-03] MEDS ORDERED: Ondansetron ODT TAB* 4 MG PO ONE (12:26)
[2018-06-03 14:14] VITALS: BP 123/64
== END 2018-06-03 14:14 | disposition home or self-care (01) ==
LOC: ED 08:10
DX: O99.613 Diseases of the digestive system complicating pregnancy, third trimester (principal); K52.9 Noninfective gastroenteritis and colitis, unspecified; Z3A.28 28 weeks gestation of pregnancy; O09.523 Supervision of elderly multigravida, third trimester; Z88.0 Allergy status to penicillin; O26.893 Other specified pregnancy related conditions, third trimester; J45.909 Unspecified asthma, uncomplicated
CPT/HCPCS: 36415; 80053; 81003; 83605; 83690; 85025; 86140; 96361; 96374; 99283; A9270-GY; J2405

== ENCOUNTER 2018-08-19 06:02 | Inpatient (IN) | payer BC, OTHER ==
[~2018-08-19 06:02] MED LIST: ceFOXitin 2 GM IVPREMIX* 2 GM/50 ML BAG IVPB SCH
[2018-08-19] MEDS ORDERED: ceFOXitin 2 GM IVPREMIX* 2 GM/50 ML BAG IVPB ONE (06:30)
[2018-08-19] MEDS ORDERED: OXYTOCIN* 10 UNITS/ML 1 ML VIAL ONE (07:42)
[2018-08-19] MEDS ORDERED: Phenylephrine 40 MCG/ML SYRINGE ONE (07:42)
[2018-08-19] MEDS ORDERED: Ketorolac INJ* 30 MG/ML 1 ML VIAL ONE (07:42)
[2018-08-19] MEDS ORDERED: Ondansetron INJ* 2 MG/ML VIAL ONE (07:42)
[2018-08-19] MEDS ORDERED: Morphine PF AMP (0.5MG/ML)* 5 MG/10 ML AMP ONE (07:49)
[2018-08-19] MEDS ORDERED: Naloxone* 0.4 MG/ML 1 ML VIAL IV PRN ×2 (07:55→08:46)
[2018-08-19] MEDS ORDERED: oxyCODONE TAB* 5 MG TAB PO PRN (07:55)
[2018-08-19] MEDS ORDERED: DiMENhydriNATE IV* 50 MG/ML VIAL IV PUSH PRN (07:55)
[2018-08-19] MEDS ORDERED: HYDROmorphone INJ1* 1 MG/ML SYRINGE IV PRN (07:55)
[2018-08-19] MEDS ORDERED: Acetaminophen IV 1GM/100ML * 1,000 MG/100 ML VIAL IVPB ONE (07:55)
[2018-08-19] MEDS ORDERED: EPHEDrine (Pressors)* 50 MG/ML VIAL ONE (08:27)
[2018-08-19] MEDS ORDERED: Ondansetron INJ* 2 MG/ML VIAL IV PRN (08:46)
[2018-08-19] MEDS ORDERED: oxyCODONE/Acetamin 5/325 MG* TAB PO PRN (08:48)
[2018-08-19] MEDS ORDERED: Witch Hazel PAD* JAR TOPICAL PRN (09:42)
[2018-08-19] MEDS ORDERED: Lactated Ringers 1000 ML Bag* 1,000 ML IV SCH (10:00)
[2018-08-19] MEDS: Nalbuphine* 10 MG/ML 1 ML VIAL IV PRN ×2 (11:28→21:46)
[2018-08-19] MEDS: Simethicone TAB* 80 MG TAB.CHEW PO SCH ×3 (13:46→21:47)
[2018-08-19] MEDS: Docusate CAP* 100 MG PO SCH ×2 (13:46→21:47)
[2018-08-19] MEDS: Ketorolac INJ* 30 MG/ML 1 ML VIAL IV SCH ×2 (15:31→21:47)
[2018-08-20] MEDS ORDERED: Acetaminophen TAB* 325 MG PO PRN
--- NOTE | 2018-08-20 03:18 | OP ---
DATE OF OPERATION: 08/19/18 - ROOM #116 DATE OF : 82 SURGEON: Vasu Claros MD DATA CONTROL CLERK SUPERVISOR: Akosua Garcia CNM and Melanie Meza CNM. ANESTHESIOLOGIST: Dr. Iniguez. ANESTHESIA: Spinal. PRE-OP DIAGNOSIS: A 39 weeks gestation with history of previous , morbid obesity, and satisfied parity. POST-OP DIAGNOSIS: A 39 weeks gestation with history of previous , morbid obesity, and satisfied parity. OPERATIVE PROCEDURE: Repeat low-transverse section and bilateral tubal ligation. ESTIMATED BLOOD LOSS: 800 cc. URINE OUTPUT: 200 cc. IV FLUIDS: 1500 cc lactated Ringer's. MATERIALS TO LAB: Bilateral tube segments and cord blood. INDICATIONS: This patient is a 38-year-old 2, para 1, who presented today for her scheduled surgery. The patient's was essentially uncomplicated. She was extensively counseled and consent was signed. FINDINGS: Normal-appearing uterus, fallopian tubes, and ovaries. Delivery is productive of a 7 pounds 5 ounces female with Apgars of 9 and 9. TIME OF DELIVERY: 0840. COMPLICATIONS: None. DESCRIPTION OF PROCEDURE: The risks, benefits, and alternatives were described to the patient, and informed consent was obtained. The patient was taken to the operating room with IV running, where spinal anesthesia was induced and found to be adequate. The patient was prepped and draped in normal sterile fashion in the dorsal supine position with a leftward tilt. A Pfannenstiel skin incision was made with a scalpel through the patient's previous incision. This was carried down to the underlying fascia using the scalpel. The fascia was scored in the midline, and the incision was extended using Allen scissors. The fascia was dissected off the underlying rectus muscles using blunt and sharp dissection. The rectus muscles were in the midline using dissection with a Krystal clamp. The peritoneum was then entered bluntly. A bladder blade was placed. A bladder flap was created sharply using Metzenbaum scissors. A low transverse uterine incision was then made with the scalpel. This was carried down to the amniotic membranes. The membranes were then ruptured, productive of clear fluid. The uterine incision was extended using blunt traction. The head was elevated to the level of the incision, and, with fundal pressure, the head delivered without difficulty. The shoulders then were also both delivered and the body followed. The had excellent tone and cried immediately on delivery. The cord was doubly clamped and cut. The was then handed to the awaiting clinical applications manager. Cord blood was collected. The placenta was delivered with manual extraction. The uterus was then exteriorized and cleared of all clots and debris. The uterine incision was then reapproximated using 0 Polysorb in a running-locked fashion. A second layer of imbricating 0 Polysorb sutures was then also placed for good hemostasis. The posterior cul-de-sac was irrigated with saline. The uterus was then returned to the abdomen. The incision was reinspected and still noted to be hemostatic. The peritoneum was closed with 2-0 chromic in a running fashion. The fascia was closed with 0 Polysorb in a running fashion. The subcutaneous tissues were copiously irrigated and made hemostatic using the Bovie. The subcutaneous tissues were then reapproximated using 2-0 chromic in interrupted sutures. The skin was then closed with . A sterile bandage was then placed over the incision. The patient tolerated the procedure well. Sponge, lap, and needle counts were correct x2. [id number]/[facility] #: [id number] [facility]ITALAma
[2018-08-20] MEDS: Ketorolac INJ* 30 MG/ML 1 ML VIAL IV SCH (04:53)
[2018-08-20] MEDS: oxyCODONE/Acetamin 5/325 MG* TAB PO PRN ×4 (05:18→20:07)
[2018-08-20 06:53] LABS: ABS Eosinophils 0.1 10^3/ul (0-0.6); ABS Lymphocytes 1.2 10^3/ul (1.0-4.8); ABS Monocytes 0.5 10^3/ul (0-0.8); ABS Neutrophils 9.8 10^3/ul (1.5-7.7); Eosinophil % 0.8 %; Hematocrit 31 % (35-47); Hemoglobin 11.1 g/dL (12.0-16.0); Lymphocyte % 10.5 %; Mean Corpuscular HGB Conc 36 g/dL (31-36); Mean Corpuscular Hemoglobin 32 pg (27-31); Mean Corpuscular Volume 91 fL (80-97); Mean Platelet Volume 7.8 fL (7.4-10.4); Platelet Count 162 10^3/uL (150-450); Red Blood Count 3.46 10^6 /uL (3.70-4.87); Red Cell Distribution Width 14 % (10.5-15); White Blood Count 11.7 10^3/uL (3.5-10.8)
[2018-08-20] MEDS: Ibuprofen TAB* 600 MG PO PRN ×3 (08:01→20:08)
[2018-08-20] MEDS: Simethicone TAB* 80 MG TAB.CHEW PO SCH ×4 (08:01→21:46)
[2018-08-20] MEDS: Docusate CAP* 100 MG PO SCH ×3 (08:01→20:08)
[2018-08-20] MEDS ORDERED: Ferrous Gluconate TAB* 324 MG TAB PO SCH (09:00)
[2018-08-21] MEDS: Ibuprofen TAB* 600 MG PO PRN ×3 (03:37→17:56)
[2018-08-21] MEDS: oxyCODONE/Acetamin 5/325 MG* TAB PO PRN ×3 (03:38→20:57)
[2018-08-21] MEDS: Docusate CAP* 100 MG PO SCH ×3 (09:18→20:56)
[2018-08-21] MEDS: Simethicone TAB* 80 MG TAB.CHEW PO SCH ×3 (09:18→20:57)
[2018-08-22] MEDS: Ibuprofen TAB* 600 MG PO PRN ×3 (00:15→12:24)
[2018-08-22] MEDS: oxyCODONE/Acetamin 5/325 MG* TAB PO PRN ×2 (00:16→06:31)
[2018-08-22] MEDS: Simethicone TAB* 80 MG TAB.CHEW PO SCH ×2 (08:46→12:46)
[2018-08-22] MEDS: Docusate CAP* 100 MG PO SCH (08:46)
[2018-08-22 11:05] VITALS: BP 125/55
== END 2018-08-22 13:14 | disposition home or self-care (01) | DRG 540 ==
LOC: MCHOB 06:02
PROVIDERS: ADMIT Obstetrics & Gynecology; ATTEND Obstetrics & Gynecology
PROC: 4A1HXCZ Monitoring of Products of Conception, Cardiac Rate, External Approach (ICD-10-PCS; 2018-08-19)
PROC: 0UB70ZZ Excision of Bilateral Fallopian Tubes, Open Approach (ICD-10-PCS; 2018-08-19)
PROC: 10D00Z1 Extraction of Products of Conception, Low, Open Approach (ICD-10-PCS; principal; 2018-08-19 07:45)
DX: O34.211 Maternal care for low transverse scar from previous cesarean delivery (principal); O99.214 Obesity complicating childbirth; E66.01 Morbid (severe) obesity due to excess calories; O99.284 Endocrine, nutritional and metabolic diseases complicating childbirth; E28.2 Polycystic ovarian syndrome; Z3A.39 39 weeks gestation of pregnancy; Z37.0 Single live birth; Z30.2 Encounter for sterilization; Z88.0 Allergy status to penicillin; Z87.891 Personal history of nicotine dependence
CPT/HCPCS: 36415; 85025; 88302; A9270-GY; J0694; J1885; J2300; J2405; J2590

== ENCOUNTER 2018-12-24 07:20 | Emergency (ER) | payer BC, OTHER ==
[2018-12-24 07:39] VITALS: BP 134/78
--- NOTE | 2018-12-24 08:00 | ED ---
GI/ HPI - HPI Summary HPI Summary: 38 yr old female with the complaint of increased frequency of urination, and some hesitancy. Pelvic and suprapubic pressure. She feels she has a UTI. She denies fever or chills. She denies NVD. She has mild lower back pain. - History of Current Complaint Chief Complaint: UCGU Time Seen by Provider: 12/24/18 07:42 Stated Complaint: URINARY COMPLAINT Hx Last Menstrual Period: UNKNOWN Pain Intensity: 3 - Allergy/Home Medications Allergies/Adverse Reactions: Allergies Allergy/AdvReac Type Severity Reaction Status Date / Time amoxicillin Allergy Hives Verified 12/24/18 07:35 bee venom protein (honey bee) Allergy Hives/Diff. Verified 12/24/18 07:35 Breathing/I tching PMH/Surg Hx/FS Hx/Imm Hx Respiratory History: Reports: Hx Asthma Sensory History: Denies: Hx Legally Blind, Hx Deafness Opthamlomology History: Denies: Hx Legally Blind - Surgical History Surgery Procedure, Year, and Place: Tonsils. x2. RECONSTRUCTIVE FACIAL SURGERY IN HER 20S. tubal Infectious Disease History: No Infectious Disease History: Denies: Traveled Outside the [place] in Last 30 Days - Family History Known Family History: Positive: Hypertension - Social History Occupation: Employed Full-time Alcohol Use: None Hx Substance Use: No Substance Use Type: Reports: None Hx Tobacco Use: No Smoking Status (MU): Never Smoked Tobacco Review of Systems Constitutional: Negative Positive: frequency, urgency All Other Systems Reviewed And Are Negative: Yes Physical Exam Triage Information Reviewed: Yes Vital Signs On Initial Exam: Initial Vitals Temp Pulse Resp BP Pulse Ox 98.2 F 87 16 134/78 98 12/24/18 07:36 12/24/18 07:36 12/24/18 07:36 12/24/18 07:36 12/24/18 07:36 Vital Signs Reviewed: Yes Appearance: Positive: Well-Appearing, No Pain Distress Skin: Positive: Warm, Skin Color Reflects Adequate Perfusion Head/Face: Positive: Normal Head/Face Inspection Eyes: Positive: EOMI ENT: Positive: Normal ENT inspection Neck: Positive: Supple Respiratory/Lung Sounds: Positive: Clear to Auscultation, Breath Sounds Present Cardiovascular: Positive: RRR. Negative: Murmur Abdomen Description: Positive: Nontender. Negative: CVA Tenderness (R), CVA Tenderness (L) Musculoskeletal: Positive: Strength/ROM Intact Neurological: Positive: Sensory/Motor Intact, Alert, Oriented to Person Place, Time, CN Intact II-III Psychiatric: Positive: Normal - [place] Coma Scale Best Eye Response: 4 - Spontaneous Best Motor Response: 6 - Obeys Commands Best Verbal Response: 5 - Oriented Coma Scale Total: 15 Diagnostics - Vital Signs Vital Signs Temp Pulse Resp BP Pulse Ox 12/24/18 07:36 98.2 F 87 16 134/78 98 - Laboratory Lab Results: Lab Results 12/24/18 Range/Units 07:48 POC Urine Color Dark yellow POC Urine Clarity Clear POC Urine pH 7.0 (5-9) POC Ur Specif [place] 1.020 (1.010-1.030) POC Urine Protein 1+ A (Negative) POC Ur Glucose (UA) Negative (Negative) POC Urine Ketones Negative (Negative) POC Urine Blood Trace-intact A (Negative) POC Urine Nitrite Negative (Negative) POC Urine Bilirubin Negative (Negative) POC Urine Urobilinogen 0.2 (Negative) POC U Leukocyte Esteras Negative (Negative) Lab Statement: Any lab studies that have been ordered have been reviewed, and results considered in the medical decision making process. GIGU Course/Dx - Course Course Of Treatment: The patient requests to be started on something for UTI. Bactrim script sent. She will follow up with her Primary, and pelvic there. She was offered pelvic exam here, but prefers her own doctor. Urine culture sent. - Diagnoses Provider Diagnoses: UTI (urinary tract infection) Discharge ED - Sign-Out/Discharge Documenting (check all that apply): Patient Departure All imaging exams completed and their final reports reviewed: No Studies - Discharge Plan Condition: Good Disposition: HOME Prescriptions: Sulfamethox/Trimethoprim DS* [Bactrim DS 800/160 TAB*] 1 tab PO BID #14 tab Patient Education Materials: Urinary Tract Infection in Women (DC) Referrals: Mert Nagel MD [Primary Care Provider] - 1 Day - Billing Disposition and Condition Condition: GOOD Disposition: Home
== END 2018-12-24 08:20 | disposition home or self-care (01) ==
LOC: UCCORT 07:20
DX: N39.0 Urinary tract infection, site not specified (principal); Z88.0 Allergy status to penicillin
CPT/HCPCS: 81003; 84702; 87086; 99212; G0463

== ENCOUNTER 2019-02-20 07:30 | Emergency (ER) | payer BC ==
[2019-02-20 07:43] VITALS: BP 142/84
--- NOTE | 2019-02-20 09:52 | UC ---
Skin Complaint HPI - HPI Summary HPI Summary: Patient is a 39yo female presenting with multiple areas of redness on her trunk that she has had for the past month. She states she is experiencing more and that a couple of the areas have become increasingly inflamed and tender. Patient denies drainage. Denies itching. Denies fever and chills. Denies n/v/d. Patient states she had h/o "boils" as a kid. She is concerned today that it may be something contagious and she does not want it to spread to her children. - History of Current Complaint Chief Complaint: UCSkin Stated Complaint: RASH Hx Obtained From: Patient Hx Last Menstrual Period: 02/17/19 Onset/Duration: Gradual Onset, Lasting Weeks Pain Intensity: 0 Pain Scale Used: 0-10 Numeric - Allergy/Home Medications Allergies/Adverse Reactions: Allergies Allergy/AdvReac Type Severity Reaction Status Date / Time amoxicillin Allergy Hives Verified 02/20/19 07:33 bee venom protein (honey bee) Allergy Hives/Diff. Verified 02/20/19 07:33 Breathing/I tching Home Medications: Home Medications Metformin HCl [Fortamet] 1,000 mg PO DAILY 02/20/19 [History Confirmed 02/20/19] Multivitamin [Multivitamins] 1 cap PO DAILY 02/20/19 [History Confirmed 02/20/19 ] Tranexamic Acid 650 mg PO DAILY PRN 02/20/19 [History Confirmed 02/20/19] PMH/Surg Hx/FS Hx/Imm Hx Endocrine History: Diabetes - Surgical History Surgical History: Yes Surgery Procedure, Year, and Place: Tonsils. x2. RECONSTRUCTIVE FACIAL SURGERY IN HER 20S. tubal - Family History Known Family History: Positive: Hypertension - Social History Alcohol Use: None Substance Use Type: None Smoking Status (MU): Never Smoked Tobacco Household Exposure Type: Cigarettes - Immunization History Most Recent Influenza Vaccination: 2016 Most Recent Tetanus Shot: UTD Most Recent Pneumonia Vaccination: none Review of Systems All Other Systems Reviewed And Are Negative: Yes Constitutional: Positive: Negative. Negative: Fever, Chills Skin: Positive: Rash - trunk Respiratory: Positive: Negative Cardiovascular: Positive: Negative Gastrointestinal: Positive: Negative. Negative: Vomiting, Nausea Musculoskeletal: Positive: Negative Neurological: Positive: Negative Physical Exam Triage Information Reviewed: Yes Appearance: Well-Appearing, No Pain Distress, Well-Nourished Vital Signs: Initial Vital Signs Temp 98.1 F 02/20/19 07:36 Pulse 61 02/20/19 07:36 Resp 18 02/20/19 07:36 BP 142/84 02/20/19 07:36 Pulse Ox 100 02/20/19 07:36 Vital Signs Reviewed: Yes Eyes: Positive: Conjunctiva Clear ENT: Positive: Hearing grossly normal Neck: Positive: Supple Respiratory Exam: Normal Respiratory: Positive: Lungs clear, Normal breath sounds Cardiovascular Exam: Normal Cardiovascular: Positive: RRR Neurological: Positive: Alert Psychological: Positive: Age Appropriate Behavior Skin: Positive: Other - two 1cm areas of erythema and tenderness noted on R lower back and one 2cm area noted on L lower back with round swelling beneath skin. Areas all appear as inflamed cysts. several other 0.5cm erythematous macular areas noted over left breast, left arm, and abdomen, without signs of infection. Course/Dx - Course Course Of Treatment: Discussed likely inflamed dermoid cysts with patient. Instructed to take Keflex or inflamed cysts and apply warm compresses daily to help relieve symptoms. A short course of prednisone was given to help reduce inflammation of her skin. Patient also requested diflucan for yeast infection that may occur with antibiotic use. Instructed to follow up with PCP or retanned leather roller if symptoms persist. Patient voiced understanding and agreed with the treatment plan. - Diagnoses Provider Diagnosis: Inflamed epidermoid cyst of skin Discharge ED - Sign-Out/Discharge Documenting (check all that apply): Patient Departure All imaging exams completed and their final reports reviewed: No Studies - Discharge Plan Condition: Stable Disposition: HOME Prescriptions: Cephalexin CAP* [Keflex CAP*] 500 mg PO TID #15 cap Fluconazole 150 MG TAB* [Diflucan 150 MG TAB*] 300 mg PO ONCE PRN #2 tablet PRN Reason: Itching predniSONE TAB* [Deltasone 10 MG TAB*] 40 mg PO DAILY #16 tab predniSONE TAB* [Deltasone 20 MG TAB*] 40 mg PO DAILY #8 tab Patient Education Materials: Prednisone (By mouth), Cyst (ED) Referrals: Gene Keith MD [Medical Doctor] - As Soon As Possible Mert Nagel MD [Primary Care Provider] - If Needed Additional Instructions: As discussed, take Keflex as prescribed for your inflamed cyst. Take the prednisone as prescribed to help reduce inflammation. Apply warm compresses to the areas 2-3 times daily to help relieve pain. Take Diflucan as prescribed if you experience symptoms of a yeast infection while taking or following treatment with Keflex. Follow up with your PCP or the retanned leather roller referral listed below for further evaluation and treatment. Go to the emergency room if you experience worsening symptoms, including increasing redness and warmth, fever, nausea, or vomiting. - Billing Disposition and Condition Condition: STABLE Disposition: Home - Attestation Statements Provider Attestation: Per institutional requirements, I have reviewed the chart, however, I was not consulted specifically or made aware of this patient by the midlevel provider. I did not personally evaluate, interact with , or disposition this patient.
== END 2019-02-20 08:49 | disposition home or self-care (01) ==
LOC: UCEAST 07:30
DX: L72.8 Other follicular cysts of the skin and subcutaneous tissue (principal); E11.9 Type 2 diabetes mellitus without complications; Z88.0 Allergy status to penicillin; Z91.030 Bee allergy status; Z79.84 Long term (current) use of oral hypoglycemic drugs
CPT/HCPCS: 99212; G0463